=== PATIENT | male | born 1995 | race Caucasian/White ===

== ENCOUNTER 2016-11-05 17:54 | Emergency (ER) | payer SELFPAY | END 2016-11-05 19:35 | disposition home or self-care (01) | LOC: ER 17:54 | DX: S82.891A Other fracture of right lower leg, initial encounter for closed fracture (principal); X58.XXXA Exposure to other specified factors, initial encounter; Y93.39 Activity, other involving climbing, rappelling and jumping off | CPT/HCPCS: 73610-RT; 96372; 99283; J1885 ==